=== PATIENT | male | born 1990 ===

== ENCOUNTER 2025-04-10 06:28 | Day surgery (SDC) | payer OTHER, SELFPAY | END 2025-04-10 10:05 | disposition home or self-care (01) | LOC: GI 06:28 | PROVIDERS: ATTENDING PHYSICIAN Student in an Organized Health Care Education/Training Program | DX: Z12.11 Encounter for screening for malignant neoplasm of colon (principal); K21.9 Gastro-esophageal reflux disease without esophagitis; K20.90 Esophagitis, unspecified without bleeding; K22.89 Other specified disease of esophagus; K31.7 Polyp of stomach and duodenum; Q40.2 Other specified congenital malformations of stomach; R12 Heartburn; Z86.0101 Personal history of adenomatous and serrated colon polyps; Z80.0 Family history of malignant neoplasm of digestive organs | CPT/HCPCS: 45378; 43239; 88305; 88342 ==